=== PATIENT | female | born 1950 | race American Indian/Alaskan Native ===

== ENCOUNTER → 2018-10-03 09:00 | Day surgery (SDC) | payer MEDICARE ==
[~2018-10-03] VITALS: Ht 160 cm; Wt 71.4 kg
[~2018-10-03 09:00] MED LIST: ACETAMINOPHEN500 M1 PO; CARAFATE1 G PO; OMEPRAZOLE20 M1 PO
[2018-10-03 09:36] LABS: BASOPHILS 0.5 % (0-2); EOSINOPHILS 3.3 % (0-7); HEMATOCRIT 37.2 % (36.0-48.0); HEMOGLOBIN 11.6 g/dL (12-16); IMMATURE GRANULOCYTES 0.3 % (0-5); LYMPHOCYTES 16.1 % (15-50); MCHC 31.2 g/dL (31.0-37.0); MCV 86.7 fL (80.0-100.0); MEAN PLATELET VOLUME 8.8 fL (7.4-10.4); MONOCYTES 8.1 % (2-11); NEUTROPHILS 71.7 % (40-80); PLATELET COUNT 616 10x3/uL (130-400); RBC 4.29 10x6/uL (4.00-5.40); RDW 27.5 % (11.5-14.5); WBC 12.7 10x3/uL (4.8-10.8)
[2018-10-03 09:46] VITALS: BP 134/62; Ht 160 cm; Wt 71.4 kg
[2018-10-03 10:05] LABS: ALBUMIN 3.4 g/dL (3.4-5.0); ALKALINE PHOSPHATASE 82 U/L (46-116); ALT (SGPT) 52 U/L (10-68); BILIRUBIN - TOTAL 0.33 mg/dL (0.2-1.3); CALC OSMOLALITY 279 mosm/kg (275-300); CALCIUM 9.1 mg/dL (8.5-10.1); CARBON DIOXIDE 23.1 mmol/L (21.0-32.0); CHLORIDE - SERUM 105 mmol/L (98-107); CREATININE - SERUM 0.8 mg/dL (0.6-1.3); GLUCOSE 87 mg/dL (74-106); POTASSIUM - SERUM 3.8 mmol/L (3.5-5.1); SODIUM 142 mmol/L (136-145); UREA NITROGEN 8 mg/dL (7-18); eGFR NON AFRICAN AMERICAN 76 mL/min (90-120)
--- NOTE | 2018-10-03 15:33 | OP ---
PATIENT NAME: PATRIC JUSTICE MEDICAL RECORD: [id number] :52 LOCATION:[facility] ADMISSION DATE: SURGEON: CHARLENE CUEVAS DO DATE OF OPERATION: 10/03/2018 PROCEDURE: EGD with hemostasis and biopsies. INDICATIONS FOR PROCEDURE: Heartburn, iron-deficiency anemia, epigastric pain, melena, nausea, positive stool guaiac. SCOPE: Olympus video gastroscope. MEDICATIONS: Propofol 240 mg IV per anesthesia. ESTIMATED BLOOD LOSS: Minimal. COMPLICATIONS: None. FINDINGS: Informed consent was given. The patient was made comfortable with the above medication. After reaching an adequate level of sedation by slow IV push, the patient was placed on her left side. The endoscope was advanced under direct visualization through the mouth to the second portion of the duodenum. The entire esophagus appeared normal. At the GE junction, there was evidence of LA class A reflux-induced esophagitis. Just beyond the GE junction, there was a hiatal hernia, which was a sliding type hernia visible from both above in the esophagus and below upon retroflexion in the stomach. There were no associated ulcers or erosions present with this hernia. The mucosa of the stomach appeared normal other than 5 avascular malformations, which were small and not bleeding at the time of the procedure. To prevent any future bleeding, these 5 AVMs were cauterized with a gold probe successfully. Random cold forceps biopsies were taken from the antrum and incisura to submit for histopathology and to rule out the presence of H. pylori. The endoscope was advanced beyond the pylorus into the duodenum. In the duodenal bulb, there was a larger AVM, which measured approximately 5-mm in diameter. It was not bleeding at the time of the procedure. To prevent bleeding, the AVM was cauterized using a gold probe successfully. The endoscope was advanced down to the second portion of the duodenum. This appeared normal. The endoscope was then withdrawn from the patient. The patient tolerated the procedure well and there were no complications. IMPRESSION: 1. LA class A reflux-induced esophagitis. 2. Sliding hiatal hernia. 3. 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 PLAN AND RECOMMENDATIONS: 1. Discharge home when recovery parameters are met. 2. Follow up biopsy specimen results. 3. GERD diet and reflux precautions. 4. Continue current medications including omeprazole 20 mg daily. 5. Proceed with colonoscopy. 6. Repeat EGD as needed for abdominal pain, which sounds like this has resolved since starting the proton pump inhibitor, or evidence of melena and further anemia. OPERATIVE REPORT [id number] PATRIC JUSTICE TRANSINT:[id number] Voice Confirmation ID: [id number] DOCUMENT ID: [id number] CHARLENE CUEVAS DO at 1533 CC: [id number] DICTATION DATE: 10/03/18 1136 PRODUCT APPLICATIONS ENGINEER: 10/03/18 1228 [facility] [address] [place] [address]
== END | disposition home or self-care (01) ==
LOC: D.OPS 10-02 15:23
PROVIDERS: Anesthesiology; ATTEND Internal Medicine Gastroenterology
DX: K21.0 Gastro-esophageal reflux disease with esophagitis (principal); K44.9 Diaphragmatic hernia without obstruction or gangrene; K31.819 Angiodysplasia of stomach and duodenum without bleeding; Z01.812 Encounter for preprocedural laboratory examination

== ENCOUNTER → 2018-11-14 06:35 | Day surgery (SDC) | payer MEDICARE ==
[~2018-11-14] VITALS: Ht 160 cm; Wt 70.5 kg
[2018-11-14 07:09] LABS: HEMATOCRIT 42.1 % (36.0-48.0); HEMOGLOBIN 14.3 g/dL (12-16); MCV 91.3 fL (80.0-100.0); MEAN PLATELET VOLUME 9.3 fL (7.4-10.4); RBC 4.61 10x6/uL (4.00-5.40); RDW 19.9 % (11.5-14.5); WBC 13.3 10x3/uL (4.8-10.8)
[2018-11-14 08:01] VITALS: BP 110/62; Ht 160 cm; Wt 70.5 kg
--- NOTE | 2018-11-21 18:24 | OP ---
PATIENT NAME: PATRIC JUSTICE MEDICAL RECORD: [id number] :52 LOCATION:[facility] ADMISSION DATE: SURGEON: CHARLENE CUEVAS DO DATE OF OPERATION: 11/14/2018 PROCEDURE: Colonoscopy with polypectomy. INDICATIONS FOR PROCEDURE: Anemia, history of polyps, positive stool guaiac. SCOPE: Olympus video pediatric colonoscope. MEDICATIONS: Propofol 520 mg IV per anesthesia. WITHDRAWAL TIME: 22 minutes. ESTIMATED BLOOD LOSS: Minimal. COMPLICATIONS: None. FINDINGS AND DESCRIPTION OF PROCEDURE: Informed consent was given. The patient was made comfortable with the above medication. After reaching an adequate level of sedation by slow IV push, the patient was placed on her left side. A digital rectal examination was performed and was normal. The endoscope was then advanced under direct visualization through the rectum to the cecum, confirmed by the presence of the appendiceal orifice and ileocecal valve. The endoscope was slowly withdrawn and the mucosa was carefully examined. The prep quality was inadequate to evaluate the cecum and ascending colon, but otherwise good. There were multiple polyps visualized on today's examination. The first was located in the cecum. It was a benign benign-appearing flat polyp, which measured approximately 8-mm in diameter. It was removed in a piecemeal fashion using hot forceps. The entire site was removed and cauterized. In the ascending colon, there were two separate benign-appearing polyps, which measured approximately 3-5 mm in diameter. They were both removed using hot forceps in 1 piece and completely retrieved. In the transverse colon, there was a single benign-appearing sessile polyp, which measured approximately 4-mm in diameter. It was removed using hot forceps in 1 piece and completely retrieved. In the descending colon, there was a single-benign appearing sessile polyp, which measured approximately 4-mm in diameter, which was removed using hot forceps in 1 piece and completely retrieved. In the cecum and in the rectum both, there was some friable congested mucosa apparent. In the cecum alone, there was some oozing of blood from superficial vessels with the water jet alone. A single cold forceps biopsy of the site was taken to submit for pathology. From this site, there was a moderate amount of oozing of blood, which was not stopping spontaneously, so a single endoclip was placed over the site successfully for hemostasis. There was evidence of mild diverticulosis involving the descending and sigmoid colon. Retroflexion was performed in the rectum with normal appearing rectal wall. The endoscope was withdrawn from the patient. The patient tolerated the procedure well and there were no complications. IMPRESSION: 1. Multiple polyps as described above, removed using hot forceps. 2. Friable and congested mucosa in the cecum and rectum. A single biopsy was taken from the cecum prior to endoclipping for hemostasis. 3. Mild diverticulosis of the descending and sigmoid colon. OPERATIVE REPORT [id number] PATRIC JUSTICE PLAN AND RECOMMENDATIONS: 1. Discharge home when recovery parameters are met. 2. Follow up biopsy specimen results. 3. High fiber diet. 4. Continue current medications. 5. Recall colonoscopy in 6 months to 1 year regarding the inadequate prep in the cecum and ascending colon as well as the number of polyps removed on today's examination. TRANSINT:[id number] Voice Confirmation ID: [id number] DOCUMENT ID: [id number] CHARLENE CUEVAS DO at 1824 CC: [id number] DICTATION DATE: 11/14/18914 CELLULOID TRIMMER: 11/14/18 1316 [facility] 11/14/18 [id number] [place] [address]
== END | disposition home or self-care (01) ==
LOC: D.OPS 06:35
PROVIDERS: Anesthesiology; ATTEND Internal Medicine Gastroenterology
DX: D12.2 Benign neoplasm of ascending colon (principal); D12.0 Benign neoplasm of cecum; D12.4 Benign neoplasm of descending colon; D12.3 Benign neoplasm of transverse colon; Z86.010 Personal history of colon polyps; K57.30 Diverticulosis of large intestine without perforation or abscess without bleeding; Z01.812 Encounter for preprocedural laboratory examination